=== PATIENT | female | born 1945 | race Caucasian/White ===

== ENCOUNTER 2023-05-11 12:13 | Emergency (ER) | payer MEDICARE ==
[~2023-05-11] VITALS: Ht 162.6 cm; Wt 72.2 kg
[2023-05-11 14:41] VITALS: BP 121/77
[2023-05-11 16:39] VITALS: PULSE 98; RESP 16; TEMP 98; O2SAT 99
== END 2023-05-11 16:42 | disposition home or self-care (01) ==
LOC: ER 12:14
DX: S83.8X1A Sprain of other specified parts of right knee, initial encounter (principal); E03.9 Hypothyroidism, unspecified; I10 Essential (primary) hypertension; E11.9 Type 2 diabetes mellitus without complications; I48.91 Unspecified atrial fibrillation; X58.XXXA Exposure to other specified factors, initial encounter; Y93.89 Activity, other specified; Y92.89 Other specified places as the place of occurrence of the external cause; Y99.8 Other external cause status
CPT/HCPCS: 93971; 99284